=== PATIENT | male | born 1955 | race Caucasian/White ===

== ENCOUNTER → 2020-03-18 | Outpatient (CLI) | payer MEDICARE, OTHER ==
[2020-03-18 13:01] LABS: BODY FLUID SOURCE ASCITES
[2020-03-18 13:02] LABS: MONONUCLEAR CELLS 89.7 (75-100); POLYMORPHONUCLEAR % 10.3 (0-25); RBC (AUTOMATED) 55200 (0-100000); WBC (AUTOMATED) 203 (0-500)
== END ==
LOC: OPSV 10:32 → US 11:00
PROVIDERS: Nurse Practitioner Acute Care
PROC: 0W9G3ZZ Drainage of Peritoneal Cavity, Percutaneous Approach (ICD-10-PCS; principal; 2020-03-18)
DX: R18.8 Other ascites (principal)
CPT/HCPCS: 87070; 89051; 96365; P9047

== ENCOUNTER → 2020-04-01 | Outpatient (CLI) | payer MEDICARE, OTHER, SELFPAY ==
[2020-04-01 14:46] LABS: BODY FLUID SOURCE ASCITES; RBC (AUTOMATED) 700 10^6; WBC (AUTOMATED) 111 10^3
[2020-04-01 14:47] LABS: MONONUCLEAR CELLS 96 %; POLYMORPHONUCLEAR 4 %
== END ==
LOC: US 10:00 → OPSV 10:01
PROVIDERS: Nurse Practitioner Acute Care
DX: R18.8 Other ascites (principal); Z88.2 Allergy status to sulfonamides; Z88.8 Allergy status to other drugs, medicaments and biological substances; Z88.6 Allergy status to analgesic agent
CPT/HCPCS: 87070; 89051; 96365; P9047

== ENCOUNTER 2020-04-11 14:56 | Emergency (ER) | payer MEDICARE, OTHER ==
[2020-04-11 18:58] LABS: HEMOGLOBIN 10.5 gm/dl (14.0-17.5); RED BLOOD COUNT 3.48 M/UL (4.20-5.50); WHITE BLOOD COUNT 4.4 K/UL (4.5-11.0)
== END 2020-04-11 22:27 | disposition home or self-care (01) ==
LOC: ER1 14:56
PROVIDERS: Nurse Practitioner
DX: K74.60 Unspecified cirrhosis of liver (principal); R18.8 Other ascites; E11.22 Type 2 diabetes mellitus with diabetic chronic kidney disease; N18.9 Chronic kidney disease, unspecified; I25.2 Old myocardial infarction; Z95.5 Presence of coronary angioplasty implant and graft; Z88.2 Allergy status to sulfonamides; Z88.5 Allergy status to narcotic agent; Z91.048 Other nonmedicinal substance allergy status; Z88.8 Allergy status to other drugs, medicaments and biological substances; Z79.84 Long term (current) use of oral hypoglycemic drugs; Z79.899 Other long term (current) drug therapy; R94.31 Abnormal electrocardiogram [ECG] [EKG]
CPT/HCPCS: 80053; 83605; 83690; 85025; 85610; 85730; 93005; 96365; 99284

== ENCOUNTER → 2020-04-15 | Outpatient (CLI) | payer MEDICARE, OTHER ==
[~2020-04-15] VITALS: Ht 172.7 cm; Wt 83.9 kg
[2020-04-15 12:33] LABS: BODY FLUID SOURCE ASCITES; MONONUCLEAR CELLS 95.2 (75-100); POLYMORPHONUCLEAR % 4.8 (0-25); RBC (AUTOMATED) 300 (0-100000); WBC (AUTOMATED) 104 (0-500)
== END ==
LOC: US 10:00 → OPSV 10:17
PROVIDERS: Nurse Practitioner Acute Care
PROC: 0W9G3ZZ Drainage of Peritoneal Cavity, Percutaneous Approach (ICD-10-PCS; principal; 2020-04-15)
PROC: BW40ZZZ Ultrasonography of Abdomen (ICD-10-PCS; 2020-04-15)
DX: R18.8 Other ascites (principal); Z88.1 Allergy status to other antibiotic agents; Z88.2 Allergy status to sulfonamides; Z88.5 Allergy status to narcotic agent; Z88.6 Allergy status to analgesic agent
CPT/HCPCS: 87070; 87205; 89051; 96365; P9047

== ENCOUNTER → 2020-04-23 | Outpatient (CLI) | payer MEDICARE, SELFPAY ==
[2020-04-23 12:59] LABS: BODY FLUID SOURCE PERITONEAL; RBC (AUTOMATED) 300 (0-100000); WBC (AUTOMATED) 117 (0-500)
[2020-04-23 13:00] LABS: MONONUCLEAR CELLS 95.7 (75-100); POLYMORPHONUCLEAR % 4.3 (0-25)
== END ==
LOC: US 09:30 → OPSV 10:35 → US 10:35
PROVIDERS: Nurse Practitioner Acute Care
PROC: 0W9G3ZZ Drainage of Peritoneal Cavity, Percutaneous Approach (ICD-10-PCS; principal; 2020-04-23)
PROC: BW40ZZZ Ultrasonography of Abdomen (ICD-10-PCS; 2020-04-23)
DX: K74.60 Unspecified cirrhosis of liver (principal); R18.8 Other ascites; Z88.1 Allergy status to other antibiotic agents; Z88.2 Allergy status to sulfonamides; Z88.5 Allergy status to narcotic agent; Z88.6 Allergy status to analgesic agent; Z79.899 Other long term (current) drug therapy; Z79.84 Long term (current) use of oral hypoglycemic drugs
CPT/HCPCS: 82150; 82945; 83615; 83986; 84157; 87070; 87205; 89051; 96365; P9047

== ENCOUNTER → 2020-04-29 | Outpatient (CLI) | payer MEDICARE, OTHER ==
[~2020-04-29] VITALS: Ht 172.7 cm; Wt 83.9 kg
[2020-04-29 14:24] LABS: BODY FLUID SOURCE ASCITES; WBC (AUTOMATED) 110 10^3
[2020-04-29 14:25] LABS: MONONUCLEAR CELLS 97.3 %; POLYMORPHONUCLEAR 2.7 %; RBC (AUTOMATED) 400 10^6
== END ==
LOC: OPSV 09:44 → US 10:00
PROVIDERS: Nurse Practitioner Acute Care
PROC: 0W9G3ZZ Drainage of Peritoneal Cavity, Percutaneous Approach (ICD-10-PCS; principal; 2020-04-29)
PROC: BW40ZZZ Ultrasonography of Abdomen (ICD-10-PCS; 2020-04-29)
DX: K74.60 Unspecified cirrhosis of liver (principal); R18.8 Other ascites; Z88.1 Allergy status to other antibiotic agents; Z88.2 Allergy status to sulfonamides; Z88.5 Allergy status to narcotic agent; Z88.6 Allergy status to analgesic agent
CPT/HCPCS: 87070; 87205; 89051; 96365; P9047

== ENCOUNTER → 2020-05-06 | Outpatient (CLI) | payer MEDICARE, SELFPAY ==
[~2020-05-06] VITALS: Ht 172.7 cm; Wt 83.9 kg
[2020-05-06 12:00] LABS: BODY FLUID SOURCE PERITONEAL
[2020-05-06 12:08] LABS: WBC (AUTOMATED) 145 10^3
[2020-05-06 12:09] LABS: MONONUCLEAR CELLS 96.6 %; POLYMORPHONUCLEAR 3.4 %; RBC (AUTOMATED) 400 10^6
== END ==
LOC: US 09:30 → OPSV 09:31
PROVIDERS: Nurse Practitioner Acute Care
DX: K74.60 Unspecified cirrhosis of liver (principal); R18.8 Other ascites; N17.9 Acute kidney failure, unspecified; Z88.5 Allergy status to narcotic agent; Z88.2 Allergy status to sulfonamides; Z88.1 Allergy status to other antibiotic agents
CPT/HCPCS: 87070; 87205; 89051; 96365; P9047

== ENCOUNTER → 2020-05-13 | Outpatient (CLI) | payer MEDICARE, OTHER ==
[~2020-05-13] VITALS: Ht 172.7 cm; Wt 83.9 kg
[2020-05-13 14:01] LABS: BODY FLUID SOURCE ASCITES; MONONUCLEAR CELLS 94.1 %; RBC (AUTOMATED) 600 10^6; WBC (AUTOMATED) 118 10^3
[2020-05-13 14:02] LABS: POLYMORPHONUCLEAR 5.9 %
== END ==
LOC: OPSV 09:08 → US 09:08
PROVIDERS: Nurse Practitioner Acute Care
PROC: 0W9G3ZZ Drainage of Peritoneal Cavity, Percutaneous Approach (ICD-10-PCS; principal; 2020-05-13)
DX: K74.60 Unspecified cirrhosis of liver (principal); R18.8 Other ascites; N17.9 Acute kidney failure, unspecified; Z79.84 Long term (current) use of oral hypoglycemic drugs; Z79.899 Other long term (current) drug therapy; Z88.1 Allergy status to other antibiotic agents; Z88.2 Allergy status to sulfonamides; Z88.5 Allergy status to narcotic agent; Z88.6 Allergy status to analgesic agent
CPT/HCPCS: 87070; 87077; 87205; 89051; 96365; P9047

== ENCOUNTER → 2020-05-20 | Outpatient (CLI) | payer MEDICARE, SELFPAY ==
[~2020-05-20] VITALS: Ht 172.7 cm; Wt 83.9 kg
[2020-05-20 11:22] LABS: BODY FLUID SOURCE ASCITES
[2020-05-20 11:23] LABS: WBC (AUTOMATED) 214 10^3
[2020-05-20 11:24] LABS: RBC (AUTOMATED) 1200 10^6
[2020-05-20 11:25] LABS: MONONUCLEAR CELLS 92 %; POLYMORPHONUCLEAR 8 %
== END ==
LOC: US 09:06 → OPSV 09:06 → US 09:30
PROVIDERS: Nurse Practitioner Acute Care
PROC: 0W9G3ZZ Drainage of Peritoneal Cavity, Percutaneous Approach (ICD-10-PCS; principal; 2020-05-20)
DX: K74.60 Unspecified cirrhosis of liver (principal); R18.8 Other ascites; Z88.1 Allergy status to other antibiotic agents; Z88.2 Allergy status to sulfonamides; Z88.5 Allergy status to narcotic agent; Z88.6 Allergy status to analgesic agent; Z79.84 Long term (current) use of oral hypoglycemic drugs; Z79.899 Other long term (current) drug therapy
CPT/HCPCS: 87070; 87205; 89051; 96365; P9047

== ENCOUNTER → 2020-05-27 | Outpatient (CLI) | payer MEDICARE, SELFPAY ==
[~2020-05-27] VITALS: Ht 172.7 cm; Wt 83.9 kg
[2020-05-27 11:21] LABS: BODY FLUID SOURCE PERITONEAL; MONONUCLEAR CELLS 95.8 (75-100); POLYMORPHONUCLEAR % 4.2 (0-25); RBC (AUTOMATED) 400 (0-100000); WBC (AUTOMATED) 144 (0-500)
== END ==
LOC: OPSV 09:38 → US 09:38
PROVIDERS: Nurse Practitioner Acute Care
PROC: 0W9G3ZZ Drainage of Peritoneal Cavity, Percutaneous Approach (ICD-10-PCS; principal; 2020-05-27)
DX: K74.60 Unspecified cirrhosis of liver (principal); R18.8 Other ascites; Z79.84 Long term (current) use of oral hypoglycemic drugs; Z79.899 Other long term (current) drug therapy
CPT/HCPCS: 87070; 87077; 87186; 87205; 89051; 96365; P9047

== ENCOUNTER → 2020-06-03 | Outpatient (CLI) | payer MEDICARE, OTHER ==
[~2020-06-03] VITALS: Ht 172.7 cm; Wt 83.9 kg
[2020-06-03 13:55] LABS: BODY FLUID SOURCE ASCITES
[2020-06-03 13:58] LABS: WBC (AUTOMATED) 136 (0-500)
[2020-06-03 13:59] LABS: MONONUCLEAR CELLS 96 (75-100); POLYMORPHONUCLEAR % 4 (0-25); RBC (AUTOMATED) 1600 (0-100000)
== END ==
LOC: US 09:14 → OPSV 09:14 → US 09:30
PROVIDERS: Nurse Practitioner Acute Care
DX: K74.60 Unspecified cirrhosis of liver (principal); R18.8 Other ascites; N17.9 Acute kidney failure, unspecified
CPT/HCPCS: 82150; 82945; 83615; 83986; 84157; 87070; 87205; 89051; 96365; P9047

== ENCOUNTER → 2020-06-10 | Outpatient (CLI) | payer MEDICARE, OTHER, SELFPAY ==
[~2020-06-10] VITALS: Ht 172.7 cm; Wt 83.9 kg
[2020-06-10 11:19] LABS: BODY FLUID SOURCE ASCITES
[2020-06-10 11:20] LABS: MONONUCLEAR CELLS 98.1 (75-100); POLYMORPHONUCLEAR % 1.9 (0-25); RBC (AUTOMATED) 400 (0-100000); WBC (AUTOMATED) 104 (0-500)
== END ==
LOC: OPSV 08:44 → US 09:30
PROVIDERS: Nurse Practitioner Acute Care
DX: K74.60 Unspecified cirrhosis of liver (principal); N17.9 Acute kidney failure, unspecified; R18.8 Other ascites
CPT/HCPCS: 87070; 87205; 89051; 96365; P9047

== ENCOUNTER → 2020-06-17 | Outpatient (CLI) | payer MEDICARE, OTHER ==
[~2020-06-17] VITALS: Ht 172.7 cm; Wt 83.9 kg
[2020-06-17 11:04] LABS: BODY FLUID SOURCE ASCITES; RBC (AUTOMATED) 400 (0-100000); WBC (AUTOMATED) 120 (0-500)
== END ==
LOC: US 08:54 → OPSV 08:54 → US 09:30
PROVIDERS: Nurse Practitioner Acute Care
PROC: 0W9G3ZZ Drainage of Peritoneal Cavity, Percutaneous Approach (ICD-10-PCS; principal; 2020-06-17)
DX: K74.60 Unspecified cirrhosis of liver (principal); R18.8 Other ascites; Z79.84 Long term (current) use of oral hypoglycemic drugs; Z79.899 Other long term (current) drug therapy; Z88.2 Allergy status to sulfonamides; Z88.5 Allergy status to narcotic agent; Z88.6 Allergy status to analgesic agent
CPT/HCPCS: 87070; 87205; 89051; 96365; P9047

== ENCOUNTER → 2020-06-24 | Outpatient (CLI) | payer MEDICARE ==
[2020-06-24 11:41] LABS: BODY FLUID SOURCE ASCITES; MONONUCLEAR CELLS 95 %; POLYMORPHONUCLEAR 5 %; RBC (AUTOMATED) 500 10^6; WBC (AUTOMATED) 130 10^3
== END ==
LOC: OPSV 08:52 → US 09:30
PROVIDERS: Nurse Practitioner Acute Care
DX: K74.60 Unspecified cirrhosis of liver (principal); R18.8 Other ascites; N17.9 Acute kidney failure, unspecified
CPT/HCPCS: 36415; 85049; 85610; 85730; 87070; 87205; 89051; 96365; P9047

== ENCOUNTER → 2020-07-01 | Outpatient (CLI) | payer MEDICARE, OTHER ==
[2020-07-01 11:31] LABS: BODY FLUID SOURCE ASCITES; MONONUCLEAR CELLS 96.3 (75-100); POLYMORPHONUCLEAR % 3.7 (0-25); RBC (AUTOMATED) 200 (0-100000); WBC (AUTOMATED) 134 (0-500)
== END ==
LOC: US 09:20 → OPSV 09:20 → US 09:30
PROVIDERS: Nurse Practitioner Acute Care
DX: K74.60 Unspecified cirrhosis of liver (principal); R18.8 Other ascites; N17.9 Acute kidney failure, unspecified
CPT/HCPCS: 87070; 87205; 89051; 96365; P9047

== ENCOUNTER → 2020-07-08 | Outpatient (CLI) | payer MEDICARE, OTHER ==
[~2020-07-08] VITALS: Ht 172.7 cm; Wt 83.9 kg
[2020-07-08 11:01] LABS: BODY FLUID SOURCE PERITONEAL; WBC (AUTOMATED) 137 10^3
[2020-07-08 11:02] LABS: MONONUCLEAR CELLS 96.4 %; POLYMORPHONUCLEAR 3.6 %; RBC (AUTOMATED) 200 10^6
== END ==
LOC: US 09:00 → OPSV 09:00 → US 09:30
PROVIDERS: Nurse Practitioner Acute Care
DX: R18.8 Other ascites (principal); K74.60 Unspecified cirrhosis of liver; N17.9 Acute kidney failure, unspecified; Z79.84 Long term (current) use of oral hypoglycemic drugs; Z79.899 Other long term (current) drug therapy
CPT/HCPCS: 87070; 87205; 89051; 96365; P9047

== ENCOUNTER → 2020-07-15 | Outpatient (CLI) | payer MEDICARE, OTHER ==
[~2020-07-15] VITALS: Ht 172.7 cm; Wt 83.9 kg
[2020-07-15 12:48] LABS: BODY FLUID SOURCE PLEURAL
[2020-07-15 12:49] LABS: MONONUCLEAR CELLS 93 (75-100); POLYMORPHONUCLEAR % 7 (0-25); RBC (MANUAL) 455; WBC (MANUAL) 165
== END ==
LOC: US 09:13
PROVIDERS: Nurse Practitioner Acute Care
DX: K74.60 Unspecified cirrhosis of liver (principal); R18.8 Other ascites; N17.9 Acute kidney failure, unspecified
CPT/HCPCS: 87070; 87205; 89051; 96365; P9047

== ENCOUNTER → 2020-07-22 | Outpatient (CLI) | payer MEDICARE, OTHER ==
[2020-07-22 13:18] LABS: BODY FLUID SOURCE ASCITES; WBC (AUTOMATED) 132 10^3
[2020-07-22 13:19] LABS: MONONUCLEAR CELLS 95.5 %; POLYMORPHONUCLEAR 4.5 %; RBC (AUTOMATED) 300 10^6
== END ==
LOC: US 10:00 → OPSV 10:34 → US 11:00
PROVIDERS: Nurse Practitioner Acute Care
DX: R18.8 Other ascites (principal)
CPT/HCPCS: 87070; 87205; 89051; 96365; P9047

== ENCOUNTER → 2020-07-29 | Outpatient (CLI) | payer MEDICARE, OTHER ==
[~2020-07-29] VITALS: Ht 172.7 cm; Wt 83.9 kg
[2020-07-29 13:24] LABS: BODY FLUID SOURCE ASCITES; MONONUCLEAR CELLS 96.7 (75-100); POLYMORPHONUCLEAR % 3.3 (0-25); RBC (AUTOMATED) 200 (0-100000); WBC (AUTOMATED) 120 (0-500)
== END ==
LOC: US 10:00 → OPSV 11:12 → US 11:12
PROVIDERS: Nurse Practitioner Acute Care
DX: K74.60 Unspecified cirrhosis of liver (principal); R18.8 Other ascites; N17.9 Acute kidney failure, unspecified; Z88.5 Allergy status to narcotic agent; Z88.2 Allergy status to sulfonamides
CPT/HCPCS: 87070; 87205; 89051; 96365; P9047

== ENCOUNTER → 2020-08-05 | Outpatient (CLI) | payer MEDICARE, OTHER ==
[~2020-08-05] VITALS: Ht 172.7 cm; Wt 83.9 kg
[2020-08-05 11:27] LABS: BODY FLUID SOURCE PERITONEAL
[2020-08-05 11:28] LABS: MONONUCLEAR CELLS 95 %; POLYMORPHONUCLEAR 5 %; RBC (AUTOMATED) 400 10^6; WBC (AUTOMATED) 137 10^3
== END ==
LOC: OPSV 09:44 → US 10:00
PROVIDERS: Nurse Practitioner Acute Care
DX: K74.60 Unspecified cirrhosis of liver (principal); R18.8 Other ascites; N17.9 Acute kidney failure, unspecified
CPT/HCPCS: 87070; 87205; 89051; 96365; P9047

== ENCOUNTER → 2020-08-12 | Outpatient (CLI) | payer MEDICARE, OTHER ==
[~2020-08-12] VITALS: Ht 172.7 cm; Wt 83.9 kg
[2020-08-12 11:32] LABS: BODY FLUID SOURCE ASCITES; RBC (AUTOMATED) 200 10^6; WBC (AUTOMATED) 149 10^3
== END ==
LOC: OPSV 09:39 → US 10:00
PROVIDERS: Nurse Practitioner Acute Care
DX: K74.60 Unspecified cirrhosis of liver (principal); R18.8 Other ascites; N17.9 Acute kidney failure, unspecified
CPT/HCPCS: 87070; 87205; 89051; 96365; P9047

== ENCOUNTER → 2020-08-19 | Outpatient (CLI) | payer MEDICARE, OTHER ==
[~2020-08-19] VITALS: Ht 172.7 cm; Wt 83.9 kg
[2020-08-19 12:42] LABS: BODY FLUID SOURCE ASCITES
[2020-08-19 12:43] LABS: RBC (AUTOMATED) 600 (0-100000); WBC (AUTOMATED) 126 (0-500)
== END ==
LOC: OPSV 11:00 → US 11:00
PROVIDERS: Nurse Practitioner Acute Care
DX: K74.60 Unspecified cirrhosis of liver (principal); N17.9 Acute kidney failure, unspecified; R18.8 Other ascites
CPT/HCPCS: 87070; 87205; 89051; 96365; P9047

== ENCOUNTER → 2020-08-26 | Outpatient (CLI) | payer MEDICARE, OTHER ==
[2020-08-26 13:17] LABS: BODY FLUID SOURCE PERITONEAL; RBC (AUTOMATED) 600 (0-100000); WBC (AUTOMATED) 157 (0-500)
[2020-08-26 13:18] LABS: MONONUCLEAR CELLS 98 (75-100); POLYMORPHONUCLEAR % 2 (0-25)
== END ==
LOC: OPSV 10:47 → US 11:00
PROVIDERS: Nurse Practitioner Acute Care
DX: K74.60 Unspecified cirrhosis of liver (principal); N17.9 Acute kidney failure, unspecified; R18.8 Other ascites
CPT/HCPCS: 87070; 87205; 89051; 96365; P9047

== ENCOUNTER → 2020-09-02 | Outpatient (CLI) | payer MEDICARE, OTHER ==
[~2020-09-02] VITALS: Ht 172.7 cm; Wt 83.9 kg
[2020-09-02 10:41] LABS: BODY FLUID SOURCE ASCITES; RBC (AUTOMATED) 500 10^6; WBC (AUTOMATED) 135 10^3
== END ==
LOC: OPSV 08:52 → US 10:00
PROVIDERS: Nurse Practitioner Acute Care
DX: K74.60 Unspecified cirrhosis of liver (principal); N17.9 Acute kidney failure, unspecified; R18.8 Other ascites
CPT/HCPCS: 87070; 87205; 89051; 96365; P9047

== ENCOUNTER → 2020-09-09 | Outpatient (CLI) | payer MEDICARE, OTHER ==
[~2020-09-09] VITALS: Ht 172.7 cm; Wt 83.9 kg
[2020-09-09 10:15] LABS: BODY FLUID SOURCE PERITONEAL
[2020-09-09 10:16] LABS: MONONUCLEAR CELLS 52 %; POLYMORPHONUCLEAR 48 %; RBC (AUTOMATED) 500 10^6; WBC (AUTOMATED) 661 10^3
== END ==
LOC: OPSV 07:16 → US 08:00
PROVIDERS: Nurse Practitioner Acute Care
DX: K74.60 Unspecified cirrhosis of liver (principal); N17.9 Acute kidney failure, unspecified; R18.8 Other ascites
CPT/HCPCS: 76705; 87070; 87205; 89051; 96365; P9047

== ENCOUNTER → 2020-09-16 | Outpatient (CLI) | payer MEDICARE, OTHER ==
[2020-09-16 12:14] LABS: BODY FLUID SOURCE PERITONEAL; MONONUCLEAR CELLS 93.1 %; POLYMORPHONUCLEAR 6.9 %; RBC (AUTOMATED) 500 10^6; WBC (AUTOMATED) 160 10^3
== END ==
LOC: OPSV 09:12 → US 09:30
PROVIDERS: Nurse Practitioner Acute Care
DX: K74.60 Unspecified cirrhosis of liver (principal); N17.9 Acute kidney failure, unspecified; R18.8 Other ascites; Z88.5 Allergy status to narcotic agent; Z88.2 Allergy status to sulfonamides
CPT/HCPCS: 36415; 85049; 85610; 85730; 87070; 87205; 89051; 96365; P9047

== ENCOUNTER → 2020-09-23 | Outpatient (CLI) | payer MEDICARE, OTHER ==
[~2020-09-23] VITALS: Ht 172.7 cm; Wt 83.9 kg
[2020-09-23 10:54] LABS: BODY FLUID SOURCE PERITONEAL; MONONUCLEAR CELLS 89 %; POLYMORPHONUCLEAR 11 %; RBC (AUTOMATED) 600 10^6; WBC (AUTOMATED) 194 10^3
== END ==
LOC: OPSV 08:51 → US 09:30
PROVIDERS: Nurse Practitioner Acute Care
DX: K74.60 Unspecified cirrhosis of liver (principal); N17.9 Acute kidney failure, unspecified; R18.8 Other ascites
CPT/HCPCS: 87070; 87077; 87186; 87205; 89051; 96365; P9047

== ENCOUNTER → 2020-09-30 | Outpatient (CLI) | payer MEDICARE, OTHER ==
[~2020-09-30] VITALS: Ht 172.7 cm; Wt 83.9 kg
[2020-09-30 10:08] LABS: BODY FLUID SOURCE ASCITES
[2020-09-30 10:10] LABS: MONONUCLEAR CELLS 96.5 %; POLYMORPHONUCLEAR 3.5 %; RBC (AUTOMATED) 26200 10^6; WBC (AUTOMATED) 199 10^3
== END ==
LOC: OPSV 07:22 → US 08:00
PROVIDERS: Nurse Practitioner Acute Care
DX: K74.60 Unspecified cirrhosis of liver (principal); N17.9 Acute kidney failure, unspecified; R18.8 Other ascites; Z88.5 Allergy status to narcotic agent; Z88.2 Allergy status to sulfonamides; Z79.899 Other long term (current) drug therapy
CPT/HCPCS: 36415; 85049; 85610; 85730; 87070; 87205; 89051; 96365; P9047

== ENCOUNTER → 2020-10-07 | Outpatient (CLI) | payer MEDICARE, OTHER ==
[~2020-10-07] VITALS: Ht 172.7 cm; Wt 83.9 kg
[2020-10-07 10:43] LABS: BODY FLUID SOURCE ASCITES; RBC (AUTOMATED) 1800 10^6; WBC (AUTOMATED) 135 10^3
[2020-10-07 10:44] LABS: MONONUCLEAR CELLS 95 %; POLYMORPHONUCLEAR 5 %
== END ==
LOC: OPSV 08:48 → US 09:00
PROVIDERS: Nurse Practitioner Acute Care
DX: K74.60 Unspecified cirrhosis of liver (principal); N17.9 Acute kidney failure, unspecified; Z90.49 Acquired absence of other specified parts of digestive tract
CPT/HCPCS: 87070; 87205; 89051; 96365; P9047

== ENCOUNTER → 2020-10-14 | Outpatient (CLI) | payer MEDICARE, OTHER ==
[~2020-10-14] VITALS: Ht 172.7 cm; Wt 83.9 kg
[2020-10-14 10:30] LABS: BODY FLUID SOURCE PERITONEAL; RBC (AUTOMATED) 700 10^6; WBC (AUTOMATED) 160 10^3
[2020-10-14 10:31] LABS: MONONUCLEAR CELLS 90.6 %; POLYMORPHONUCLEAR 9.4 %
== END ==
LOC: US 09:00 → OPSV 09:02
PROVIDERS: Nurse Practitioner Acute Care
DX: R18.8 Other ascites (principal)
CPT/HCPCS: 87070; 87205; 89051; 96365; P9047

== ENCOUNTER → 2020-10-21 | Outpatient (CLI) | payer MEDICARE, OTHER ==
[~2020-10-21] VITALS: Ht 172.7 cm; Wt 83.9 kg
[2020-10-21 14:08] LABS: BODY FLUID SOURCE PERITONEAL; MONONUCLEAR CELLS 93 %; POLYMORPHONUCLEAR 7 %; RBC (AUTOMATED) 800 10^6; WBC (AUTOMATED) 134 10^3
== END ==
LOC: OPSV 11:00 → US 11:00
PROVIDERS: Nurse Practitioner Acute Care
DX: K74.60 Unspecified cirrhosis of liver (principal); N17.9 Acute kidney failure, unspecified; R18.8 Other ascites
CPT/HCPCS: 87070; 87205; 89051; 96365; P9047

== ENCOUNTER → 2020-10-28 | Outpatient (CLI) | payer MEDICARE, OTHER ==
[~2020-10-28] VITALS: Ht 172.7 cm; Wt 83.9 kg
[2020-10-28 11:20] LABS: HEMOGLOBIN 11.3 gm/dl (14.0-17.5); RED BLOOD COUNT 3.73 M/UL (4.20-5.50); WHITE BLOOD COUNT 2.9 K/UL (4.5-11.0)
[2020-10-28 15:10] LABS: BODY FLUID SOURCE ASCITES; RBC (AUTOMATED) 700 10^6; WBC (AUTOMATED) 124 10^3
[2020-10-28 15:11] LABS: MONONUCLEAR CELLS 96.8 %; POLYMORPHONUCLEAR 3.2 %
== END ==
LOC: US 10:45 → OPSV 10:45 → US 11:00
PROVIDERS: Nurse Practitioner Acute Care
DX: K74.60 Unspecified cirrhosis of liver (principal); N17.9 Acute kidney failure, unspecified; R18.8 Other ascites; Z88.5 Allergy status to narcotic agent; Z88.2 Allergy status to sulfonamides
CPT/HCPCS: 36415; 85025; 85610; 85730; 87070; 87205; 89051; 96365; P9047

== ENCOUNTER 2020-10-29 01:14 | Emergency (ER) | payer MEDICARE, OTHER ==
[2020-10-29 02:21] LABS: HEMOGLOBIN 10.7 gm/dl (14.0-17.5); RED BLOOD COUNT 3.53 M/UL (4.20-5.50); WHITE BLOOD COUNT 3.5 K/UL (4.5-11.0)
== END 2020-10-29 05:10 | disposition home or self-care (01) ==
LOC: ER1 01:14
PROVIDERS: Physician Assistant
DX: K13.79 Other lesions of oral mucosa (principal); I25.2 Old myocardial infarction; I51.9 Heart disease, unspecified; Z88.8 Allergy status to other drugs, medicaments and biological substances; Z88.2 Allergy status to sulfonamides
CPT/HCPCS: 80053; 85025; 85610; 85730; 99283

== ENCOUNTER → 2020-11-04 | Outpatient (CLI) | payer MEDICARE, OTHER ==
[~2020-11-04] VITALS: Ht 172.7 cm; Wt 83.9 kg
[2020-11-04 11:40] LABS: BODY FLUID SOURCE PERITONEAL; MONONUCLEAR CELLS 96 %; POLYMORPHONUCLEAR 4 %; RBC (AUTOMATED) 800 10^6; WBC (AUTOMATED) 98 10^3
== END ==
LOC: US 09:37 → OPSV 09:37 → US 10:00
PROVIDERS: Nurse Practitioner Acute Care
DX: K74.60 Unspecified cirrhosis of liver (principal); N17.9 Acute kidney failure, unspecified; R18.8 Other ascites
CPT/HCPCS: 87070; 87205; 89051; 96365; P9047

== ENCOUNTER → 2020-11-11 | Outpatient (CLI) | payer MEDICARE ==
[~2020-11-11] VITALS: Ht 172.7 cm; Wt 83.9 kg
[2020-11-11 10:35] LABS: BODY FLUID SOURCE ASCITES
[2020-11-11 10:36] LABS: MONONUCLEAR CELLS 96.5 %; RBC (AUTOMATED) 600 10^6; WBC (AUTOMATED) 114 10^3
[2020-11-11 10:37] LABS: POLYMORPHONUCLEAR 3.5 %
== END ==
LOC: US 08:44 → OPSV 08:44 → US 09:00
PROVIDERS: Nurse Practitioner Acute Care
DX: K74.60 Unspecified cirrhosis of liver (principal); N17.9 Acute kidney failure, unspecified
CPT/HCPCS: 87070; 87205; 89051; 96365; P9047

== ENCOUNTER → 2020-11-18 | Outpatient (CLI) | payer MEDICARE ==
[~2020-11-18] VITALS: Ht 172.7 cm; Wt 83.9 kg
[2020-11-18 11:37] LABS: BODY FLUID SOURCE ASCITES; MONONUCLEAR CELLS 95.5 %; POLYMORPHONUCLEAR 4.5 %; RBC (AUTOMATED) 600 10^6; WBC (AUTOMATED) 112 10^3
== END ==
LOC: US 09:00 → OPSV 09:08
PROVIDERS: Nurse Practitioner Acute Care
DX: K74.60 Unspecified cirrhosis of liver (principal); N17.9 Acute kidney failure, unspecified; R18.8 Other ascites; Z88.5 Allergy status to narcotic agent; Z88.2 Allergy status to sulfonamides
CPT/HCPCS: 87205; 89051; 96365; P9047

== ENCOUNTER → 2020-12-02 | Outpatient (CLI) | payer MEDICARE ==
[~2020-12-02] VITALS: Ht 172.7 cm; Wt 83.9 kg
[2020-12-02 12:30] LABS: BODY FLUID SOURCE PERITONEAL
[2020-12-02 12:31] LABS: RBC (MANUAL) 923; WBC (MANUAL) 54
== END ==
LOC: US 12-01 09:30 → OPSV 08:25 → US 09:00
PROVIDERS: Nurse Practitioner Acute Care
DX: K74.60 Unspecified cirrhosis of liver (principal); N17.9 Acute kidney failure, unspecified; R18.8 Other ascites; Z88.2 Allergy status to sulfonamides; Z88.5 Allergy status to narcotic agent; Z79.899 Other long term (current) drug therapy
CPT/HCPCS: 87205; 89051; 96365; P9047

== ENCOUNTER → 2020-12-09 | Outpatient (CLI) | payer MEDICARE, OTHER ==
[~2020-12-09] VITALS: Ht 172.7 cm; Wt 83.9 kg
[2020-12-09 12:52] LABS: BODY FLUID SOURCE PERITONEAL
[2020-12-09 12:53] LABS: MONONUCLEAR CELLS 94.9 (75-100); POLYMORPHONUCLEAR % 5.1 (0-25); RBC (AUTOMATED) 700 (0-100000); WBC (AUTOMATED) 79 (0-500)
== END ==
LOC: US 12-08 09:30 → OPSV 12-08 10:30 → US 09:00 → OPSV 09:09 → US 09:09
PROVIDERS: Nurse Practitioner Acute Care
DX: K74.60 Unspecified cirrhosis of liver (principal); R18.8 Other ascites; N17.9 Acute kidney failure, unspecified
CPT/HCPCS: 36415; 85049; 85610; 85730; 87205; 89051; 96365; P9047

== ENCOUNTER → 2020-12-16 | Outpatient (CLI) | payer MEDICARE ==
[~2020-12-16] VITALS: Ht 172.7 cm; Wt 83.9 kg
[2020-12-16 11:30] LABS: BODY FLUID SOURCE PERITONEAL; MONONUCLEAR CELLS 96 %; POLYMORPHONUCLEAR 4 %; RBC (AUTOMATED) 500 10^6; WBC (AUTOMATED) 77 10^3
== END ==
LOC: US 12-15 09:00 → OPSV 12-15 10:00 → US 09:00
PROVIDERS: Nurse Practitioner Acute Care
DX: K74.60 Unspecified cirrhosis of liver (principal); R18.8 Other ascites; N17.9 Acute kidney failure, unspecified
CPT/HCPCS: 87205; 89051; 96365; P9047

== ENCOUNTER → 2020-12-22 | Outpatient (CLI) | payer MEDICARE ==
[~2020-12-22] VITALS: Ht 172.7 cm; Wt 83.9 kg
[2020-12-22 11:20] LABS: BODY FLUID SOURCE PERITONEAL; RBC (AUTOMATED) 5800 (0-100000); WBC (AUTOMATED) 750 (0-500)
[2020-12-22 11:21] LABS: MONONUCLEAR CELLS 97 (75-100); POLYMORPHONUCLEAR % 3 (0-25)
== END ==
LOC: US 09:00 → OPSV 09:06 → US 09:06
PROVIDERS: Nurse Practitioner Acute Care
DX: K74.60 Unspecified cirrhosis of liver (principal); N17.9 Acute kidney failure, unspecified; R18.8 Other ascites; I25.10 Atherosclerotic heart disease of native coronary artery without angina pectoris; Z88.5 Allergy status to narcotic agent; Z88.2 Allergy status to sulfonamides; Z79.899 Other long term (current) drug therapy
CPT/HCPCS: 87205; 89051; 93005; 96365; P9047

== ENCOUNTER → 2020-12-29 | Outpatient (CLI) | payer MEDICARE ==
[~2020-12-29] VITALS: Ht 172.7 cm; Wt 83.9 kg
[2020-12-29 10:39] LABS: BODY FLUID SOURCE PERITONEAL; MONONUCLEAR CELLS 45 %; POLYMORPHONUCLEAR 55 %; RBC (AUTOMATED) 1200 10^6; WBC (AUTOMATED) 379 10^3
== END ==
LOC: OPSV 08:58 → US 09:00
PROVIDERS: Nurse Practitioner Acute Care
DX: K74.60 Unspecified cirrhosis of liver (principal); R18.8 Other ascites; N17.9 Acute kidney failure, unspecified
CPT/HCPCS: 87070; 87077; 87186; 87205; 89051; 96365; P9047

== ENCOUNTER → 2021-01-05 | Outpatient (CLI) | payer MEDICARE ==
[~2021-01-05] VITALS: Ht 172.7 cm; Wt 83.9 kg
[2021-01-05 10:39] LABS: BODY FLUID SOURCE ASCITES
[2021-01-05 10:40] LABS: MONONUCLEAR CELLS 79.1 %; POLYMORPHONUCLEAR 20.9 %; RBC (AUTOMATED) 500 10^6; WBC (AUTOMATED) 378 10^3
== END ==
LOC: US 09:00 → OPSV 09:06 → US 01-06 09:00
PROVIDERS: Nurse Practitioner Acute Care
DX: K74.60 Unspecified cirrhosis of liver (principal); N17.9 Acute kidney failure, unspecified; R18.8 Other ascites
CPT/HCPCS: 87070; 87205; 89051; 96365; P9047

== ENCOUNTER → 2021-01-12 | Outpatient (CLI) | payer MEDICARE ==
[2021-01-12 10:10] LABS: BODY FLUID SOURCE ASCITES; RBC (AUTOMATED) 500 10^6; WBC (AUTOMATED) 72 10^3
[2021-01-12 10:11] LABS: MONONUCLEAR CELLS 96 %; POLYMORPHONUCLEAR 4 %
== END ==
LOC: US 08:52 → OPSV 08:52 → US 09:00
PROVIDERS: Nurse Practitioner Acute Care
DX: K74.60 Unspecified cirrhosis of liver (principal); R18.8 Other ascites; N17.9 Acute kidney failure, unspecified; Z90.49 Acquired absence of other specified parts of digestive tract
CPT/HCPCS: 87205; 89051; 96365; P9047

== ENCOUNTER → 2021-01-19 | Outpatient (CLI) | payer MEDICARE ==
[~2021-01-19] VITALS: Ht 172.7 cm; Wt 83.9 kg
[2021-01-19 12:53] LABS: BODY FLUID SOURCE ASCITES; MONONUCLEAR CELLS 100 (75-100); POLYMORPHONUCLEAR % 0 (0-25); RBC (AUTOMATED) 400 (0-100000); WBC (AUTOMATED) 51 (0-500)
== END ==
LOC: US 08:00 → OPSV 09:08
PROVIDERS: Internal Medicine Geriatric Medicine
DX: K74.60 Unspecified cirrhosis of liver (principal); R18.8 Other ascites; N17.9 Acute kidney failure, unspecified
CPT/HCPCS: 36415; 85049; 85610; 85730; 87205; 89051; 96365; P9047

== ENCOUNTER → 2021-01-26 | Outpatient (CLI) | payer MEDICARE ==
[~2021-01-26] VITALS: Ht 172.7 cm; Wt 83.9 kg
[2021-01-26 10:25] LABS: BODY FLUID SOURCE ASCITES; WBC (AUTOMATED) 43 10^3
[2021-01-26 10:26] LABS: MONONUCLEAR CELLS 97.7 %; POLYMORPHONUCLEAR 2.3 %; RBC (AUTOMATED) 500 10^6
== END ==
LOC: US 09:00 → OPSV 09:11 → US 09:30
PROVIDERS: Nurse Practitioner Acute Care
DX: K74.60 Unspecified cirrhosis of liver (principal); R18.8 Other ascites; N17.9 Acute kidney failure, unspecified
CPT/HCPCS: 87070; 87205; 89051; 96365; P9047

== ENCOUNTER → 2021-02-02 | Outpatient (CLI) | payer MEDICARE ==
[~2021-02-02] VITALS: Ht 172.7 cm; Wt 83.9 kg
[2021-02-02 11:16] LABS: BODY FLUID SOURCE ASCITES; RBC (AUTOMATED) 600 (0-100000); WBC (AUTOMATED) 52 (0-500)
[2021-02-02 11:17] LABS: MONONUCLEAR CELLS 89 (75-100); POLYMORPHONUCLEAR % 11 (0-25)
== END ==
LOC: US 09:00 → OPSV 09:05
PROVIDERS: Nurse Practitioner Acute Care
DX: K74.60 Unspecified cirrhosis of liver (principal); R18.8 Other ascites; N17.9 Acute kidney failure, unspecified
CPT/HCPCS: 87205; 89051; 96365; P9047

== ENCOUNTER → 2021-02-09 | Outpatient (CLI) | payer MEDICARE ==
[~2021-02-09] VITALS: Ht 172.7 cm; Wt 83.9 kg
[2021-02-09 10:32] LABS: BODY FLUID SOURCE ASCITES
[2021-02-09 10:33] LABS: WBC (AUTOMATED) 5949 10^3
[2021-02-09 10:34] LABS: MONONUCLEAR CELLS 22.4 %; RBC (AUTOMATED) 2000 10^6
[2021-02-09 10:35] LABS: POLYMORPHONUCLEAR 77.6 %
== END ==
LOC: OPSV 07:55 → US 07:55
PROVIDERS: Nurse Practitioner Acute Care
DX: K74.60 Unspecified cirrhosis of liver (principal); R18.8 Other ascites; N17.9 Acute kidney failure, unspecified
CPT/HCPCS: 87205; 89051; 96365; P9047